=== PATIENT | female | born 2005 | race Caucasian/White ===

== ENCOUNTER 2023-06-26 15:05 | Observation (INO) | payer OTHER, SELFPAY ==
[2023-06-26 15:33] VITALS: BP 117/79; PULSE 89; RESP 16; TEMP 36.4; BMI 27.3
--- NOTE | 2023-06-26 15:34 | OBADM ---
This patient, Juliet Rowe, admitted to the OB room [facility] for observation. Patient/family oriented to hospital policies and general routines including ID bracelet, bed and alarms, visiting hours, pain management, procedures, bathroom and other care routines, personal items, smoking policy, room service/diet, and visiting hours. Patient/Family are encouraged to report perceived risks to care and to ask questions if they do not understand what they are told or what they should do.
[2023-06-26 15:45] VITALS: BP 119/75; PULSE 92
[2023-06-26 15:48] LABS: Appearance Urine Clear (Clear); Bilirubin Urine Negative (Negative); Blood Urine Negative (Negative); Color Urine Yellow (Yellow); Glucose Urine UA Negative (Negative); Ketones Urine Negative (Negative); Leukocyte Esterase Ur Negative LEU/UL (Negative); Nitrate Urine Negative (Negative); Protein Urine Negative (Negative); Specific Grav Ur 1.003 (1.001-1.035); Urobilinogen Urine 0.2 mg/dL (<2.0)
[2023-06-26 15:54] LABS: Add Urine Microscopic? NO
[2023-06-26 16:00] VITALS: BP 115/72; PULSE 84
[2023-06-26 16:15] VITALS: BP 110/76; PULSE 84
--- NOTE | 2023-06-26 16:43 | PM.IMHP ---
H&P: HPI History of Present Illness Date/Time: 06/26/23 16:43 Chief Complaint: 17-year-old 1 who presents for contractions at 35 weeks gestation. She has occasional contraction on the monitor. She has reassuring heart tones. She has been intermittently ursula over the past week or so. She denies any vaginal bleeding or loss of fluid. She reports good movement. She denies any nausea/vomiting, fever, chills. She denies any chest pain or shortness of breath. We will observe it for a time. She has occasional contraction. We will check her cervix. We will discharge if there is no change. Review of Systems Review of Systems: All systems reviewed & are unremarkable except as noted in HPI and below Constitutional: Constitutional: Denies chills, Denies fatigue, Denies fever(s) and Denies weakness Eyes: Eyes: Denies blurry vision, Denies change in vision, Denies loss of peripheral vision, Denies loss of vision, Denies other visual disturbances and Denies eye pain ENT: Denies vertigo, Denies dizziness, Denies hearing loss, Denies mouth pain, Denies nasal obstruction, Denies neck mass and Denies neck pain Cardiovascular: Cardiovascular: Denies chest pain, Denies diaphoresis, Denies syncope, Denies leg edema and Denies dyspnea Respiratory: Respiratory: Denies chest congestion, Denies cough, Denies hemoptysis, Denies dyspnea and Denies wheezing Gastrointestinal: Gastrointestinal: Denies abdominal pain, Denies constipation, Denies diarrhea, Denies nausea and Denies vomiting Genitourinary: Genitourinary: Denies hematuria, Denies change in libido, Denies nocturia, Denies genital lesions, Denies flank pain and Denies urinary urgency Musculoskeletal: Musculoskeletal: Denies abnormal gait, Denies back pain, Denies myalgias, Denies arthralgias, Denies joint swelling, Denies muscle weakness and Denies neck pain Integumentary/Breasts: Skin/Breast: Denies swelling, Denies breast pain, Denies breast mass, Denies dry skin, Denies nipple discharge, Denies unusual bruising and Denies jaundice Neurologic: Denies Neuro-related abnormal movements, Denies Abnormal speech present, Denies abnormal gait, Denies behavioral changes, Denies confusion, Denies vertigo, Denies dizziness, Denies syncope, Denies loss of vision, Denies memory loss, Denies convulsions and Denies weakness Psychiatric: Psychiatric: Denies abnormal sleep pattern, Denies behavioral changes, Denies change in libido, Denies confusion, Denies depression, Denies anhedonia and Denies memory loss Endocrine: Endocrine: Reports no additional endocrine complaints, Denies change in libido and Denies fatigue Hematologic/Lymphatic: Hematologic/Lymphatic: Reports no additional hematologic/lymphatic complaints Allergic/Immunologic: Allergic/Immunologic: Reports no additional allergic/immunologic complaints and Denies wheezing Meds Vital Signs Vital Signs - 24 hr 06/26/23 15:33 06/26/23 15:33 06/26/23 15:45 Temperature 97.6 F Pulse Rate 89 92 Respiratory Rate 16 Blood Pressure 117/79 119/75 Oxygen Delivery Room Air 06/26/23 16:00 06/26/23 16:15 Temperature Pulse Rate 84 84 Respiratory Rate Blood Pressure 115/72 110/76 Oxygen Delivery Exam Const: General: healthy appearing, comfortable and no acute distress Resp: Auscultation: clear to auscultation bilaterally, no rales, no rhonchi and no wheezes Cardio: Rate: regular rate Heart sounds: no click, no murmurs and no rubs GI: Inspection: non-distended Auscultation: normal bowel sounds Extrem: General: normal to inspection, no pedal edema and no calf tenderness H&P: Results Labs Labs: Urine 06/26/23 Range/Units 15:27 Urine Color Yellow (Yellow) Urine Appearance Clear (Clear) Urine pH 7.0 (5.0-9.0) Ur Specific [place] 1.003 (1.001-1.035) Urine Protein Negative (Negative) mg/dL Urine Glucose (UA) Negative (Negative) mg/dL Assessment and Plan Assess
[2023-06-26 16:54] VITALS: BP 117/79; PULSE 87
--- NOTE | 2023-06-26 16:56 | PC.NURSE ---
Dr. Farrell notified of patient's complaints and reviewed NST. Dr. Farrell at bedside. SVE closed/thick/high. Okay to discharge.
--- NOTE | 2023-07-06 11:25 | P.PNOB_ITS ---
OB - Triage/Final Diagnosis Visit Information Comments/Additional reasons for admission: I have assessed the risk for this patient, Juliet Rowe, and determined that she would benefit from observation care. Evaluation Laboratory results: Laboratory Tests 06/26/23 15:27 Urine Color Yellow Urine Appearance Clear Urine pH 7.0 Ur Specific [place] 1.003 Urine Protein Negative Urine Glucose (UA) Negative Urine Ketones Negative Ur Blood (Man) Negative Urine Nitrate Negative Urine Bilirubin Negative Urine Urobilinogen 0.2 Leukocyte Esterase Rfl Negative Final Diagnosis (1) False labor: Code(s): O47.9 - False labor, unspecified Status: Acute
== END 2023-06-26 16:55 | disposition home or self-care (01) ==
PROVIDERS: Admitting Provider Obstetrics & Gynecology; Visit Provider Obstetrics & Gynecology
DX: O47.03 False labor before 37 completed weeks of gestation, third trimester (principal); Z3A.35 35 weeks gestation of pregnancy
CPT/HCPCS: 59025; 81003; G0378; G0379